=== PATIENT | female | born 1960 | race Two or more races ===

== ENCOUNTER 2019-07-17 20:15 | Emergency (ER) | payer OTHER ==
[~2019-07-17] VITALS: Ht 170.2 cm; Wt 100.7 kg
[2019-07-17 20:15] VITALS: BP 187/94
[2019-07-17] MEDS ORDERED: IBUPROFEN 400 MG TABLET PO ONE (21:00)
[2019-07-17] MEDS ORDERED: LORAZEPAM 1 MG TABLET PO ONE (21:00)
[2019-07-17] MEDS ORDERED: ACETAMINOPHEN 325 MG TABLET PO ONE (21:00)
[2019-07-17] MEDS ORDERED: LORAZEPAM 1 MG TABLET ONE ×2 (21:00→21:23)
[2019-07-17] MEDS ORDERED: IBUPROFEN 400 MG TABLET ONE (21:01)
[2019-07-17] MEDS ORDERED: ACETAMINOPHEN 325 MG TABLET ONE (21:01)
--- NOTE | 2019-07-17 21:31 | NUR ---
RADIOLOGY AT BEDSIDE
--- NOTE | 2019-07-17 23:43 | NUR ---
Patient discharged to home in stable condition. Written and verbal after care instructions given. Patient verbalizes understanding of instruction. Prescriptions given and explained. Patient understands not to drive and operate behind any machinery while taking medication.
== END 2019-07-17 23:45 | disposition home or self-care (01) ==
LOC: ER 20:16
DX: S22.22XA Fracture of body of sternum, initial encounter for closed fracture (principal); S80.11XA Contusion of right lower leg, initial encounter; I10 Essential (primary) hypertension; V49.49XA Driver injured in collision with other motor vehicles in traffic accident, initial encounter; Y93.89 Activity, other specified; Y92.413 State road as the place of occurrence of the external cause; Y99.8 Other external cause status
CPT/HCPCS: 36415; 71250-TC; 73590-TC; 84484-TC